=== PATIENT | female | born 1975 | race Caucasian/White ===

== ENCOUNTER 2018-06-04 20:02 | Emergency (ER) | payer OTHER ==
[~2018-06-04] VITALS: Ht 154.9 cm; Wt 75.0 kg
[~2018-06-04 20:02] MED LIST: NOCURR
[2018-06-04] MEDS ORDERED: SUMA50TA17 PO (20:34)
[2018-06-04 20:58] LABS: APPEARANCE,URINE TURBID (CLEAR); BILIRUBIN,URINE NEGATIVE (NEGATIVE); GLUCOSE, URINE (UA) NEGATIVE (NEGATIVE); KETONES,URINE NEGATIVE (NEGATIVE); LEUKOCYTE ESTERASE ,URINE NEGATIVE (NEGATIVE); NITRATE,URINE NEGATIVE (NEGATIVE); OCCULT BLOOD,URINE NEGATIVE (NEGATIVE); PH,URINE 8.5 (5.0-8.0); PROTEIN,URINE TRACE (NEGATIVE); UROBILINOGEN,URINE 0.2 mg/dL (<=1.0)
[2018-06-04] MEDS ORDERED: KETOROLAC TROMETHAMINE 30 MG/ML VIAL IVP ONE (21:30)
[2018-06-04] MEDS ORDERED: FentaNYL CITRATE-PF 100 MCG/2 ML VIAL IVP ONE (21:30)
[2018-06-04] MEDS ORDERED: SODIUM CHLORIDE 0.9% 1,000 ML IV ONE (21:30)
[2018-06-04] MEDS ORDERED: ONDANSETRON HCL 4 MG/2 ML VIAL IVP ONE (21:30)
[2018-06-04 22:02] LABS: BASOPHILS % (AUTO) 0.4 % (0.0-2.0); HEMATOCRIT 37.2 % (36-46); HEMOGLOBIN 12.5 g/dL (12.0-16.0); LYMPHOCYTES % (AUTO) 26.4 % (22.0-44.0); MEAN CORPUSCULAR HEMOGLOBIN 29.9 pg (26.0-34.0); MEAN CORPUSCULAR HGB CONC 33.6 G/dL (31.0-37.0); MEAN CORPUSCULAR VOLUME 89 fL (80-100); MONOCYTES # (AUTO) 0.8 K/uL (0.1-1.0); MONOCYTES % (AUTO) 10.9 % (2.0-9.0); NEUTROPHILS # (AUTO) 4.7 K/uL (1.8-7.7); NEUTROPHILS % (AUTO) 60.3 % (40.0-70.0); PLATELET COUNT (AUTO) 188 K/uL (150-450); RED BLOOD CELL COUNT(AUTO) 4.18 MIL/uL (4.00-5.20); RED CELL DISTRIBUTION WIDTH 13.6 % (11.5-14.5)
[2018-06-04 22:12] LABS: ANION GAP 8 mmol/L (8-16); CALCIUM, TOTAL 8.9 mg/dL (8.8-10.5); CARBON DIOXIDE 31 mmol/L (22-29); CHLORIDE 103 mmol/L (98-107); CREATININE 0.77 mg/dL (0.60-1.30); GLOMERULAR FILTR. RATE CALC > 60 mL/min (>60); GLUCOSE,RANDOM 118 mg/dL (70-110); POTASSIUM 3.6 mmol/L (3.5-5.1); SODIUM SERUM 142 mmol/L (136-145); UREA NITROGEN, BLOOD 12 mg/dL (7-18)
[2018-06-04 22:40] LABS: PLATELET MORPHOLOGY COMMENT LARGE PLTS PRESENT
[2018-06-04 23:04] VITALS: BP 124/75
== END 2018-06-04 23:11 | disposition home or self-care (01) ==
LOC: EMS 20:02
DX: G43.909 Migraine, unspecified, not intractable, without status migrainosus (principal); E86.0 Dehydration
CPT/HCPCS: 36415; 80048; 81003; 81025; 85025; 96361; 96374; 96375; 99283; J1885; J2405; J3010; J7030

== ENCOUNTER 2019-03-24 10:50 | Emergency (ER) | payer OTHER ==
[~2019-03-24] VITALS: Ht 165.1 cm; Wt 72.7 kg
[~2019-03-24 10:50] MED LIST changes: -NOCURR; +SUMA50TA17 PO
[2019-03-24 12:35] LABS: APPEARANCE,URINE CLEAR (CLEAR); BILIRUBIN,URINE NEGATIVE (NEGATIVE); GLUCOSE, URINE (UA) NEGATIVE (NEGATIVE); KETONES,URINE NEGATIVE (NEGATIVE); LEUKOCYTE ESTERASE ,URINE NEGATIVE (NEGATIVE); NITRATE,URINE NEGATIVE (NEGATIVE); OCCULT BLOOD,URINE NEGATIVE (NEGATIVE); PH,URINE 7.5 (5.0-8.0); PROTEIN,URINE NEGATIVE (NEGATIVE); UROBILINOGEN,URINE 0.2 mg/dL (<=1.0)
[2019-03-24 13:26] LABS: BASOPHILS % (AUTO) 0.8 % (0.0-2.0); EOSINOPHILS % (AUTO) 2.6 % (1.0-6.0); HEMATOCRIT 37.5 % (36-46); HEMOGLOBIN 12.5 g/dL (12.0-16.0); LYMPHOCYTES # (AUTO) 2.1 K/uL (1.0-4.8); LYMPHOCYTES % (AUTO) 32.1 % (22.0-44.0); MEAN CORPUSCULAR HEMOGLOBIN 30.7 pg (26.0-34.0); MEAN CORPUSCULAR HGB CONC 33.4 G/dL (31.0-37.0); MEAN CORPUSCULAR VOLUME 92 fL (80-100); MONOCYTES # (AUTO) 0.6 K/uL (0.1-1.0); MONOCYTES % (AUTO) 9.7 % (2.0-9.0); NEUTROPHILS # (AUTO) 3.6 K/uL (1.8-7.7); NEUTROPHILS % (AUTO) 54.8 % (40.0-70.0); PLATELET COUNT (AUTO) 158 K/uL (150-450); RED BLOOD CELL COUNT(AUTO) 4.07 MIL/uL (4.00-5.20); RED CELL DISTRIBUTION WIDTH 13.4 % (11.5-14.5)
[2019-03-24 13:32] LABS: ALANINE AMINOTRANSFERASE 30 U/L (12-78); ALBUMIN 3.7 g/dL (3.4-5.0); ALKALINE PHOSPHATASE 62 U/L (46-116); ANION GAP 8 mmol/L (8-16); ASPARTATE AMINOTRANSFERASE 18 U/L (15-37); BILIRUBIN,TOTAL 0.4 mg/dL (0.1-1.0); CARBON DIOXIDE 28 mmol/L (22-29); CHLORIDE 105 mmol/L (98-107); CREATININE 0.65 mg/dL (0.60-1.30); GLOMERULAR FILTR. RATE CALC > 60 mL/min (>60); GLUCOSE,RANDOM 101 mg/dL (70-110); HCG,QUANTITATIVE < 1 mIU/mL (0-6); LIPASE 153 U/L (73-393); POTASSIUM 4.1 mmol/L (3.5-5.1); SODIUM SERUM 141 mmol/L (136-145); UREA NITROGEN, BLOOD 8 mg/dL (7-18)
[2019-03-24 13:44] LABS: CALCIUM, TOTAL 9.2 mg/dL (8.8-10.5); TOTAL PROTEIN, SERUM 7.6 g/dL (6.4-8.2)
[2019-03-24 13:45] VITALS: BP 115/82
== END 2019-03-24 15:05 | disposition home or self-care (01) ==
LOC: EMS 10:52
DX: D25.9 Leiomyoma of uterus, unspecified (principal); G40.909 Epilepsy, unspecified, not intractable, without status epilepticus; Z90.49 Acquired absence of other specified parts of digestive tract
CPT/HCPCS: 76856

== ENCOUNTER 2020-04-07 13:02 | Emergency (ER) | payer OTHER ==
[~2020-04-07] VITALS: Ht 165.1 cm; Wt 68.2 kg
[2020-04-07] MEDS ORDERED: SILVER SULFADIAZINE 1% 25 GM CREAM TP ONE (13:30)
[2020-04-07] MEDS ORDERED: ACETAMINOPHEN 500 MG TABLET PO ONE (13:30)
[2020-04-07] MEDS ORDERED: PERTUSS(ACELL),DIPH,TET VAC/PF 0.5 ML VIAL IM ONE (13:45)
[2020-04-07 14:04] VITALS: BP 138/80
== END 2020-04-07 14:11 | disposition home or self-care (01) ==
LOC: EMS 13:02
DX: T23.201A Burn of second degree of right hand, unspecified site, initial encounter (principal); G43.909 Migraine, unspecified, not intractable, without status migrainosus; Z90.89 Acquired absence of other organs; X10.2XXA Contact with fats and cooking oils, initial encounter; Y93.G3 Activity, cooking and baking; Y92.89 Other specified places as the place of occurrence of the external cause; Y99.8 Other external cause status
CPT/HCPCS: 16020; 90471; 90715